=== PATIENT | female | born 2005 | race Caucasian/White ===

== ENCOUNTER 2023-07-09 22:09 | Emergency (ER) | payer OTHER, SELFPAY ==
[2023-07-09 22:09] VITALS: BMI 26.2
[2023-07-09 22:13] VITALS: BP 140/82
[2023-07-09 22:41] LABS: % Basophils 0.3 % (0-2); % Eosinophils 0.3 % (0-6); % Immature Granulocytes 0.3 % (0-0.5); % Lymphocytes 8.7 % (20.5-51.1); % Monocytes 5.5 % (1.7-9.3); % Neutrophils 84.9 % (42.2-75.2); Absolute Eosinophils 0.1 10^3/uL (0-0.7); Absolute Lymphocytes 1.3 10^3/uL (1.2-3.4); Absolute Monocytes 0.8 10^3/uL (0.1-0.6); Absolute Neutrophils 12.5 10^3/uL (1.4-6.5); Hematocrit 39.1 % (37.0-47.0); Hemoglobin 13.5 g/dL (12.0-16.0); Mean Corp Hgb Conc. 34.5 g/dL (33.0-37.0); Mean Corpuscular Volume 83.9 fL (81.0-99.0); Mean Platelet Volume 9.3 fL (7.4-10.4); Nucleated Red Blood Cells % 0 %; Platelet Count 377 10^3/uL (130-400); Red Blood Cell Count 4.66 10^6/uL (4.20-5.40); White Blood Cell Count 14.8 10^3/uL (4.8-10.8)
[2023-07-10 01:32] LABS: ALT (SGPT) 30 U/L (0-35); AST (SGOT) 27 U/L (14-36); Alkaline Phosphatase 90 U/L (38-126); Blood Urea Nitrogen 20 mg/dl (7-17); Calcium 10.2 mg/dl (8.4-10.2); Carbon Dioxide 17 mmol/L (22-30); Chloride 108 mmol/L (98-107); Estimated Creatinine Clearance 89 ml/min; Glucose 112 mg/dl (70-99); Lipase 51 U/L (23-300); Potassium 4.2 mmol/L (3.5-5.1); Sodium 142 mmol/L (135-145); Total Bilirubin 0.8 mg/dl (0.2-1.3); eGFR > 60.00
[2023-07-10 01:34] LABS: HCG, Serum Qualitative Screen Negative
[2023-07-10] MEDS: NSS 1000 IV (01:34)
--- NOTE | 2023-07-10 02:24 | ED.GENMED ---
History of Present Illness
General
Chief Complaint: Abdominal Pain
Source: patient and family
Exam Limitations: none
Time Seen by Provider: 07/10/23 02:22
Nursing documentation reviewed up to this point in time: agreed with
Travel History
Have you had any contact with someone who has COVID-19?: No
Do you have any symptoms of coronavirus? Fever > 100 degrees, chills, cough, shortness of breath, sore throat, loss of taste or smell, muscle aches, or headache?: No
History of Present Illness
History of Present Illness:
17-year-old female who presents with diffuse abdominal pain that has been present since about 5 PM this afternoon. She states that she has had nausea with vomiting. Vomitus occasionally contained bright red blood streaks. She does have nonbloody
diarrhea that is mucousy in nature. Patient does have a history of SIBO and has had a colonoscopy last at age 13. She has not been on antibiotics since February. Denies fever, chills, chest pain, or shortness of breath. Denies any previous
abdominal surgeries.
Review of Systems
Review of Systems
Allergies reviewed?: Yes
All Other Systems: ROS reviewed and negative except as documented in HPI and ROS
Constitutional: Reports no symptoms
EENT: Reports no symptoms
Respiratory: Reports no symptoms
Cardiac: Reports no symptoms
ABD/GI: Reports abdominal pain, nausea, vomiting and diarrhea; Denies constipated
: Reports no symptoms
Musculoskeletal: Reports no symptoms
Skin: Reports no symptoms
Neurological: Reports no symptoms
Endocrine: Reports no symptoms
Hematologic/Lymphatic: Reports no symptoms
Psychiatric: Reports anxiety
Phy Exam
General Physical Exam
General Presentation: mild distress
General age: appears stated age
General Skin: warm and dry
General Habitus: normal
General Mental: alert
General Hydration: appears well hydrated
ENT Exam
ENT Exam: EOMI, pharynx normal, neck supple and normocephalic
Eye Exam
Eye Exam: PERRL, cornea clear and conjunctiva normal
Cardiovascular Exam
Cardiovascular Exam: regular rate/rhythm, no edema, no murmur and normal peripheral pulses
Pulmonary Exam
Pulmonary Exam: lungs clear, no respiratory distress, no rales, no crackles, no rhonchi, no stridor, no wheezing and no cough
Gastrointestinal Exam
Gastrointestinal Exam: normal bowel sounds, non tender, soft, no organomegaly, no pulsatile mass and non distended
Palpation: generalized: Minimal tenderness
Neurological Exam
Neurological Exam: alert, oriented x3, no motor deficits and speech normal
Musculoskeletal Exam
Musculoskeletal Exam: full ROM and no edema
Skin Exam
Skin Exam: normal color, warm/dry, no rash and no petechia
Psychiatric Exam
Psychiatric Exam: normal mood/affect
Course
Orders/Labs/Results
Orders:
Orders
07/09/23 22:15
IV Insert/Care/Rem.- Treatment PRN
Test Result ONCE
07/09/23 22:21
Complete Blood Count/With Diff Urgent
07/09/23 22:45
Comprehensive Metabolic Panel Urgent
HCG, Serum Qualitative Screen Urgent
Lipase Urgent
07/10/23 01:34
0.9% Sodium Chloride 1000 ml [Nss] 1,000 ml IV BOLUS
07/10/23 02:41
Ondansetron Injectable [Zofran] 4 mg IV NOW STA
Stool for Occult Blood Routine
07/10/23 02:50
STOOL [C difficile Antigen & Toxins] Urgent
RAJ Source: Feces/Stool
Specimen Description:
Date Specimen was Collected: 07/10/23
Time Specimen was Collected: 02:44
Stool Culture Urgent
RAJ Source: Feces/Stool
Specimen Description:
Date Specimen was Collected: 07/10/23
Time Specimen was Collected: 02:44
Stool For WBC Urgent
RAJ Source: Feces/Stool
Specimen Description:
Date Specimen was Collected: 07/10/23
Time Specimen was Collected: 02:44
07/10/23 02:52
Urinalysis Reflex To Culture Urgent
Date Specimen was Collected: 07/10/23
Time Specimen was Collected: 02:51
Urine Microscopic Reflex Cult Urgent
Urine Culture Urgent
RAJ Source: U
Specimen Description:
Date Specimen was Collected: 07/10/23
Time Specimen was Collected: 02:51
Abnormal Lab Results
07/09/23 07/10/23 07/10/23
22:21 01:12 02:52
WBC 14.8 H 10^3/uL
(4.8-10.8)
Absolute Neuts (auto) 12.5 H 10^3/uL
(1.4-6.5)
Absolute Monos (auto) 0.8 H 10^3/uL
(0.1-0.6)
Neutrophils % 84.9 H %
(42.2-75.2)
Lymphocytes % 8.7 L %
(20.5-51.1)
Chloride 108 H mmol/L
(98-107)
Carbon Dioxide 17 L mmol/L
(22-30)
BUN 20 H mg/dl
(7-17)
Glucose 112 H mg/dl
(70-99)
Urine Ketones 3+ A
(Negative)
Ur Occult Blood Reflex 4+ A
(Negative)
Urine Bilirubin 1+ A
(Negative)
Urine RBC 3-6 A /HPF
(0-2)
Urine Bacteria (Reflex) Moderate A
(Negative)
07/09/23 22:21
07/10/23 01:12
Vital Signs
Initial and Last Documented VS:
Initial Vital Signs
Temp Pulse Resp BP Pulse Ox
98.3 F 98 19 140/82 100
07/09/23 22:13 07/09/23 22:13 07/09/23 22:13 07/09/23 22:13 07/09/23 22:13
Last Documented Vital Signs
Temp Pulse Resp BP Pulse Ox
98.3 F 98 19 140/82 100
07/09/23 22:13 07/09/23 22:13 07/09/23 22:13 07/09/23 22:13 07/09/23 22:13
*Critical Care Note
Total Time (30-74mins, 75-104mins- exclusive of procedures): Not Applicable
Update Note
Update Note:
17-year-old female with abdominal pain
ED Attending Note
-
Portions of this chart may have been created with voice recognition software.� Occasional wrong word or��sound alike� substitutions may have occurred due to the inherent limitations of voice recognition software.
Discharge Plan
Departure
Patient Disposition: Home (Routine Discharge)
Date of Disposition: 07/10/23
Time of Disposition: 03:54
Patient with high blood pressure during this ER visit?: Yes
Condition: Good
Discharge Problem:
Abdominal pain, Nausea & vomiting, Diarrhea
Instructions: Diarrhea in teens and adults, Nausea and Vomiting, Adult (DC), Abdominal Pain
Referrals:
Melita Betancourt MD [Family Provider] -
Activity Restrictions/Additional Instructions:
It was a pleasure meeting you and taking part in your care. We hope for your continued healing and wellness.
Please read discharge instructions in their entirety. However, they are for general education and may not describe your exact diagnosis at discharge. Information on your ER visit and medical conditions were discussed with you along with appropriate
follow up information...
If indicated, please take your medications as instructed and indicated on discharge paperwork.
Please schedule a follow up appointment as directed. Call to schedule an appointment
Please return to the emergency department with ANY change in, persisting, or worsening of symptoms. If any of your symptoms do not improve, or persist, or become more severe within 6-12 hours, please return to the emergency department for further
care.
Please return to the emergency department if you develop a headache, neck pain/stiffness, fever greater than 100.4F, chest pain, shortness of breath, persistent nausea, vomiting, slurred speech, difficulty walking, numbness/tingling, weakness, signs
of infection or any other symptoms that are worrisome to you.
If you have any questions or concerns please do not hesitate to call the Hospital at or E-mail me directly at [email or web address]
Interventions
Interventions:
*Risk Screen - Suicide Last Done: 07/09/23 22:13
*General Assessment Last Done: 07/09/23 22:13
*Neglect/Abuse Screening Last Done: 07/09/23 22:13
ED- Fall Risk Assessment Last Done: 07/10/23 01:32
*ED COVID-19 Vaccine History Last Done: 07/09/23 22:13
XT-Pgdzco-Wgfdkqxnjj Assessment Last Done: 07/10/23 01:32
Discharge Date and Time
Print Language: [id number]
[2023-07-10] MEDS: ZOFRAN 4 MG IV (02:46)
[2023-07-10 03:12] LABS: Urine Albumin Negative (Neg - Trace); Urine Bilirubin 1+ (Negative); Urine Character Clear (Clear); Urine Color Yellow; Urine Glucose Negative (Negative); Urine Ketone 3+ (Negative); Urine Leukocyte Negative (Negative); Urine Nitrite Negative (Negative); Urine Occult Blood 4+ (Negative); Urine Urobilinogen Negative (Neg - 1+)
[2023-07-10 03:51] LABS: Urine Squamous Cell >30 /LPF (Few)
[2023-07-10 03:52] LABS: Urine Bacteria Moderate (Negative); Urine White Cell 0-2 /HPF (0-5)
== END 2023-07-10 04:01 | disposition home or self-care (01) ==
LOC: EMR 22:09
PROVIDERS: Emergency Medicine; EMERGENCY PHYSICIAN Student in an Organized Health Care Education/Training Program; FAMILY PHYSICIAN Pediatrics
DX: R10.84 Generalized abdominal pain (principal); R11.2 Nausea with vomiting, unspecified; R19.7 Diarrhea, unspecified
CPT/HCPCS: 99283; 96374; 96361; 80053; 81003; 81015; 83690; 84703; 85025; 87045; 87046; 87086; 87147; 87186; 87324; 87427; 87449; 89055